=== PATIENT | male | born 1980 | race Caucasian/White ===

== ENCOUNTER 2017-05-13 13:06 | Emergency (ER) | payer OTHER ==
[~2017-05-13] VITALS: Ht 162.6 cm; Wt 84.6 kg
[~2017-05-13 13:06] MED LIST: ACET-1256 PO; DICL-201 PO
[2017-05-13 13:16] VITALS: TEMP 36.7; Ht 162.6 cm; Wt 84.6 kg
[2017-05-13] MEDS ORDERED: SODIUM CHLORIDE 0.9% 1000ML 1,000 ML IV STA (13:34)
[2017-05-13] MEDS ORDERED: MoRPHine SULFATE 4 MG/ML 1 ML CARP\\VIAL IV STA (13:34)
[2017-05-13] MEDS ORDERED: SODIUM CHLORIDE 0.9% 500ML 500 ML IV STA (13:34)
[2017-05-13] MEDS ORDERED: ONDANSETRON INJ 2 MG/ML 2 ML VIAL IV STA (13:34)
[2017-05-13 13:49] LABS: BASO % 0.3 %; BASO ABS # 0.03 K/uL (0-0.2); COMPLETE YES; EOS % 3.4 %; HEMATOCRIT 44.7 % (42-52); IG% 0.3 %; LYMPH % 31.3 %; MEAN CELL VOLUME 89.6 fL (80-100); MEAN CORPUSCULAR HEMOGLOBIN 31.9 pg (25-34); MEAN CORPUSCULAR HGB CONC 35.6 g/dl (32-36); MEAN PLATELET VOLUME 12.8 fL (7.4-10.4); NEUT % 56.7 %; PLATELET COUNT 183 K/uL (130-400); RED BLOOD COUNT 4.99 M/uL (4.7-6.1); WHITE BLOOD COUNT 11.82 K/uL (4.8-10.8)
[2017-05-13 13:59] LABS: URINE APPEARANCE CLOUDY (CLEAR); URINE BILIRUBIN NEG (NEG); URINE COLOR YELLOW; URINE EPITHELIAL CELL AUTO 0-5 /lpf (0-5); URINE NITRITE NEG (NEG); URINE PH 6.5 (4.5-7.5); URINE SPECIFIC GRAVITY 1.026 (1.000-1.030); UROBILINOGEN NEG (NEG); ZZUR CULT IF INDIC CLEAN CATCH NO
[2017-05-13 14:07] LABS: MANUAL MICROSCOPIC REQUIRED? NO; REVIEW REQ? NO
[2017-05-13 14:09] LABS: ALT/SGPT 30 U/L (12-78); AST/SGOT 19 U/L (15-37); BLOOD UREA NITROGEN 16 mg/dl (7-18); BUN/CREATININE RATIO 14.4 (10-20); CALCIUM 9.3 mg/dl (8.5-10.1); CARBON DIOXIDE 29 mmol/L (21-32); CHLORIDE 104 mmol/L (98-107); CREATININE 1.13 mg/dl (0.60-1.40); GLUCOSE 87 mg/dl (70-99); POTASSIUM 3.9 mmol/L (3.5-5.1); SODIUM 140 mmol/L (136-145)
[2017-05-13 14:12] LABS: ALKALINE PHOSPHATASE 82 U/L (45-117)
--- NOTE | 2017-05-13 15:09 | DIAGNOSTIC IMAGING REPORT ---
ABDOMEN AND PELVIS CT WITHOUT CONTRAST CT DOSE: 523.08 mGy.cm HISTORY: kidney stone, hematuria, lower abd pain with urination TECHNIQUE: Multiaxial CT images of the abdomen and pelvis were performed without contrast. A dose lowering technique was utilized adhering to the principles of ALARA. COMPARISON STUDY: None. FINDINGS: The lung bases are clear. Bilateral L5 spondylolysis. The unenhanced liver, gallbladder, spleen, pancreas, and adrenal glands are unremarkable. No renal or ureteral stones. No hydronephrosis. Mild bladder wall thickening which could be due to underdistention. Normal appendix. Suboptimal evaluation for bowel pathology due to the lack of intravenous and oral contrast. However, there is no definite bowel wall thickening or obstruction. Colonic diverticulosis. Punctate calcification within the anterior wall the bladder. This is of doubtful significance. No bladder stones identified. IMPRESSION: 1. No renal or ureteral stones. No hydronephrosis. 2. No definite bowel wall thickening or obstruction. 3. Normal appendix. 4. Colonic diverticulosis. 5. Questionable thickening versus underdistention of the bladder. Recommend correlation with urinalysis to exclude a cystitis. Electronically signed by: Livan Ricketts M.D. 05/13/2017 3:07 PM Dictated Date/Time: 05/13/2017 3:03 PM
--- NOTE | 2017-05-13 15:29 | EMERGENCY ROOM VISIT NOTE ---
History Report prepared by Sun: Bahman Kessler Under the Supervision of: Dr. Kaleigh Hager M.D. First contact with patient: 13:18 Chief Complaint: ILLNESS Stated Complaint: KIDNEY STONE-REFERRED BY [facility] History of Present Illness The patient is a 37 year old male who presents to the Emergency Room with complaints of persistent "sharp" bilateral abdominal pain beginning two days ago. His symptoms began with pain radiating into his groin with urination. He also complains of bilateral lower back pain and increased urinary urgency. The patient was seen at a walk in clinic just prior to arrival for his symptoms and was referred to the ED for evaluation of possible kidney stone. He states that he had some blood in his urine at the walk in clinic. He has no history of kidney stone. The patient states that his abdominal pain radiates into his back when touched on. 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 The patient has a history of recurrent hernias, but states that his current pain feels different. He denies recent straining or injury. He denies testicular pain. Source of History: patient Onset: Two days ago Position: abdomen (bilateral lower) Quality: sharp Timing: other (persistent) Associated Symptoms: + back pain (bilateral lower), + urinary symptoms ( increased urgency.) Note: Additional symptoms: pain radiating into his groin with urination. He denies testicular pain. Review of Systems See HPI for pertinent positives & negatives. A total of 10 systems reviewed and were otherwise negative. Past Medical & Surgical Medical Problems: (1) Hand contusion (2) Hand laceration (3) Hernia (4) No Known Active Medical Problems Family History No pertinent family history stated. Social History Smoking Status: Never Smoker Alcohol Use: none Drug Use: none Marital Status: Occupation Status: employed Current/Historical Medications No Active Prescriptions or Reported Meds Allergies Coded Allergies: Penicillins (Unverified Allergy, Mild, VOMITING, 05/13/17) POLLEN (Verified Allergy, Unknown, hayfever symptoms, 05/13/17) Physical Exam Vital Signs Date Time Temp Pulse Resp B/P (MAP) Pulse Ox O2 Delivery O2 Flow Rate FiO2 05/13/17 13:54 82 05/13/17 13:16 36.7 89 18 139/85 97 Room Air Physical Exam Vital signs reviewed. General: Well-appearing male, in no significant distress. HEENT: No scleral icterus, PERRLA, neck supple. Atraumatic. Cardiovascular: Regular rate and rhythm, no extra sounds. Pulmonary: Clear to auscultation bilaterally, normal work of breathing. Abdomen: Soft, nontender, nondistended, positive bowel sounds. No significant reproducible tenderness. Musculoskeletal: Atraumatic, no peripheral edema. Neurologic: Patient awake alert and oriented x 3 Skin: Warm, dry, no rash Medical Decision & Procedures ER Provider Diagnostic Interpretation: CT results as stated below per my review and radiologist interpretation: ABDOMEN AND PELVIS CT WITHOUT CONTRAST FINDINGS: The lung bases are clear. Bilateral L5 spondylolysis. The unenhanced liver, gallbladder, spleen, pancreas, and adrenal glands are unremarkable. No renal or ureteral stones. No hydronephrosis. Mild bladder wall thickening which could be due to underdistention. Normal appendix. Suboptimal evaluation for bowel pathology due to the lack of intravenous and oral contrast. However, there is no definite bowel wall thickening or obstruction. Colonic diverticulosis. Punctate calcification within the anterior wall the bladder. This is of doubtful significance. No bladder stones identified. IMPRESSION: 1. No renal or ureteral stones. No hydronephrosis. 2. No definite bowel wall thickening or obstruction. 3. Normal appendix. 4. Colonic diverticulosis. 5. Questionable thickening versus underdistention of the bladder. Recommend correlation with urinalysis to exclude a cystitis. Electronically signed by: Livan Ricketts M.D. 05/13/2017 3:07 PM Laboratory Results 05/13/17 13:30 Red Blood Count 4.99, Mean Corpuscular Volume 89.6, Mean Corpuscular Hemoglobin 31.9, Mean Corpuscular Hemoglobin Concent 35.6, Mean Platelet Volume 12.8, Neutrophils (%) (Auto) 56.7, Lymphocytes (%) (Auto) 31.3, Monocytes (%) (Auto) 8.0, Eosinophils (%) (Auto) 3.4, Basophils (%) (Auto) 0.3, Neutrophils # (Auto) 6.72, Lymphocytes # (Auto) 3.70, Monocytes # (Auto) 0.94, Eosinophils # (Auto) 0.40, Basophils # (Auto) 0.03 05/13/17 13:30 Test 05/13/17 13:30 White Blood Count 11.82 K/uL (4.8-10.8) Red Blood Count 4.99 M/uL (4.7-6.1) Hemoglobin 15.9 g/dL (14.0-18.0) Hematocrit 44.7 % (42-52) Mean Corpuscular Volume 89.6 fL (80-100) Mean Corpuscular Hemoglobin 31.9 pg (25-34) Mean Corpuscular Hemoglobin Concent 35.6 g/dl (32-36) Platelet Count 183 K/uL (130-400) Mean Platelet Volume 12.8 fL (7.4-10.4) Neutrophils (%) (Auto) 56.7 % Lymphocytes (%) (Auto) 31.3 % Monocytes (%) (Auto) 8.0 % Eosinophils (%) (Auto) 3.4 % Basophils (%) (Auto) 0.3 % Neutrophils # (Auto) 6.72 K/uL (1.4-6.5) Lymphocytes # (Auto) 3.70 K/uL (1.2-3.4) Monocytes # (Auto) 0.94 K/uL (0.11-0.59) Eosinophils # (Auto) 0.40 K/uL (0-0.5) Basophils # (Auto) 0.03 K/uL (0-0.2) RDW Standard Deviation 42.5 fL (36.4-46.3) RDW Coefficient of Variation 13.1 % (11.5-14.5) Immature Granulocyte % (Auto) 0.3 % Immature Granulocyte # (Auto) 0.03 K/uL (0.00-0.02) Urine Color YELLOW Urine Appearance CLOUDY (CLEAR) Urine pH 6.5 (4.5-7.5) Urine Specific [place] 1.026 (1.000-1.030) Urine Protein NEG (NEG) Urine Glucose (UA) NEG (NEG) Urine Ketones NEG (NEG) Urine Occult Blood 1+ (NEG) Urine Nitrite NEG (NEG) Urine Bilirubin NEG (NEG) Urine Urobilinogen NEG (NEG) Urine Leukocyte Esterase NEG (NEG) Urine WBC (Auto) 0 /hpf (0-5) Urine RBC (Auto) 10-30 /hpf (0-4) Urine Hyaline Casts (Auto) 0 /lpf (0-5) Urine Epithelial Cells (Auto) 0-5 /lpf (0-5) Urine Bacteria (Auto) NEG (NEG) Anion Gap 7.0 mmol/L (3-11) Est Creatinine Clear Calc Drug Dose 87.0 ml/min Estimated GFR () 95.0 Estimated GFR (Non- 82.0 BUN/Creatinine Ratio 14.4 (10-20) Calcium Level 9.3 mg/dl (8.5-10.1) Total Bilirubin 0.4 mg/dl (0.2-1) Direct Bilirubin < 0.1 mg/dl (0-0.2) Aspartate Amino Transf (AST/SGOT) 19 U/L (15-37) Alanine Aminotransferase (ALT/SGPT) 30 U/L (12-78) Alkaline Phosphatase 82 U/L (45-117) Total Protein 7.5 gm/dl (6.4-8.2) Albumin 4.2 gm/dl (3.4-5.0) Laboratory results per my review. Medications Administered Medications (Trade) Dose Ordered Sig/Purnima Route Start Time Stop Time Status Last Admin Dose Admin Sodium Chloride 500 ml @ 999 mls/hr Q31M STAT IV 05/13/17 13:34 05/13/17 14:04 DC 05/13/17 13:51 999 MLS/HR Sodium Chloride 1,000 ml @ 125 mls/hr Q8H STAT IV 05/13/17 13:34 05/13/17 21:33 05/13/17 13:34 125 MLS/HR Morphine Sulfate (MoRPHine SULFATE INJ) 4 mg NOW STAT IV 05/13/17 13:34 05/13/17 13:37 DC 05/13/17 13:52 4 MG Ondansetron HCl (Zofran Inj) 4 mg NOW STAT IV 05/13/17 13:34 05/13/17 13:37 DC 05/13/17 13:51 4 MG ED Course 1331: Past medical records reviewed. The patient was evaluated in room B3B. A complete history and physical examination was performed. 1334: Ordered Zofran Inj 4 mg IV, Morphine Sulfate 4 mg IV, Sodium Chloride 1000 ml @ 125 mls/hr IV, Sodium Chloride 500 ml @ 999 mls/hr IV. 1515: Upon reevaluation, the patient appeared to have improvement of his symptoms. I discussed findings with him. He verbalized agreement of the treatment plan. The patient was discharged home. Medical Decision Differential diagnosis: Etiologies such as appendicitis, diverticulitis, PUD, biliary pathology, UTI, pancreatitis, obstruction, mesenteric ischemia, aortic pathology, infections, inflammatory bowel disease, renal colic, as well as others were entertained. This patient was evaluated and appeared to be in no significant distress. Physical examination is fairly unrevealing. The patient is concerned about the possibility of a kidney stone. He does have trace blood in the urine. CT scan of the abdomen and pelvis was performed and per radiology reveals no significant ureteral calculus. UA reveals no evidence of cystitis. I question of a small punctate calcification on the bladder. I suspect the patient has passed a small stone. He will push fluids and continue ibuprofen for pain. He' ll follow-up with his physician for reevaluation return for worsening of symptoms or any medical concerns. Medication Reconcilliation Current Medication List: was personally reviewed by me Blood Pressure Screening Patient's blood pressure: Elevated blood pressure Blood pressure disposition: Elevated BP felt to be situational Impression Primary Impression: Renal colic Scribe Attestation The scribe's documentation has been prepared under my direction and personally reviewed by me in its entirety. I confirm that the note above accurately reflects all work, treatment, procedures, and medical decision making performed by me. Departure Information Dispostion Home / Self-Care Prescriptions No Active Prescriptions or Reported Meds Referrals Errol Shannon M.D. (PCP) Forms HOME CARE DOCUMENTATION FORM, IMPORTANT VISIT INFORMATION, WORK / SCHOOL INSTRUCTIONS Patient Instructions My [facility] Additional Instructions Diagnosis: Renal colic Increase fluids. Ibuprofen 600 mg and Tylenol 650 mg every 6 hours as needed for pain (Maximum 3000 mg Tylenol in 24 hr period). Follow up with your doctor for worsening symptoms. Follow up sooner for fever >101, vomiting, or significant increase in pain not controlled with medication.
[2017-05-13 15:33] VITALS: BP 118/68; PULSE 69; O2SAT 97
== END 2017-05-13 16:08 | disposition home or self-care (01) ==
LOC: C.EDB 13:07
DX: N23 Unspecified renal colic (principal)